=== PATIENT | female | born 1995 | race Caucasian/White ===

== ENCOUNTER → 2025-09-09 15:56 | Outpatient (CLI) | payer BC, SELFPAY ==
--- NOTE | 2025-09-09 16:02 | DI.RAD.S_ITS ---
PROCEDURE: XR CHEST 2V INDICATIONS: SUBACUTE COUGH X8.5 WKS TECHNIQUE: 2 views of the chest were acquired. COMPARISON: None. FINDINGS: Heart, mediastinum and pulmonary vascular: Heart is normal in size and configuration. Mediastinum is unremarkable. Pulmonary vascular is normal. Lungs: Clear Pleural spaces: Normal-no effusions or pneumothorax. Bones and soft tissues: Pectus excavatum deformity noted IMPRESSION: No acute cardiopulmonary disease Dictated by: Miguelangel Perez M.D. on 09/12/2025 at 12:36 Approved by: Miguelangel Perez M.D. on 09/12/2025 at 12:36
== END ==
PROVIDERS: Referring Provider Family Medicine; Visit Provider Family Medicine
DX: R05.2 Subacute cough (principal)
CPT/HCPCS: 71046